=== PATIENT | female | born 1985 | race Native Hawaiian/Other Pacific Islander ===

== ENCOUNTER 2017-08-29 06:29 | Inpatient (IN) | payer OTHER ==
[2017-08-29 07:11] VITALS: BMI 26.3
[2017-08-29] MEDS ORDERED: ceFAZolin IV 2 gm in Dextrose 2 GM/50 ML BAG IVPB ONE (07:22)
[2017-08-29] MEDS ORDERED: Oxytocin 30 units/LR 500ML 30 U/500 ML BAG IV ONE (07:25)
[2017-08-29] MEDS: Lactated Ringer's 1,000 ML IV SCH ×2 (07:40→08:50)
[2017-08-29 08:27] LABS: BASO % 0.3 % (0.0-2.0); EOS # 0.1 K/uL (0.0-0.7); HEMOGLOBIN 12.2 g/dL (12.0-16.0); LYMPH # 1.6 K/uL (1.0-4.3); MEAN CELL VOLUME 93.5 fl (81.0-99.0); MEAN CORPUSCULAR HEMOGLOBIN 32.4 pg (27.0-31.0); MEAN CORPUSCULAR HGB CONC 34.6 g/dL (33.0-37.0); MEAN PLATELET VOLUME 8.4 fl (7.2-11.7); MONO # 0.5 K/uL (0.0-0.8); MONO % 5.8 % (0.0-10.0); NEUT # 5.8 K/uL (1.8-7.0); NEUT % 72.9 % (50.0-75.0); RBC 3.77 Mil/uL (3.80-5.20); RED CELL DISTRIBUTION WIDTH 13.4 % (11.5-14.5)
[2017-08-29] MEDS ORDERED: Naloxone 0.4 mg/ml Inj (Adult) IVP PRN ×2 (08:52→15:26)
[2017-08-29] MEDS ORDERED: DiphenhydrAMINE 50 mg/ml Inj IVP PRN ×2 (08:52→15:26)
[2017-08-29] MEDS ORDERED: Lactated Ringer's 1,000 ML IV SCH ×2 (09:15→15:26)
[2017-08-29] MEDS ORDERED: Morphine 1 mg/ml preservative-free Inj(Duramorph) ONE (09:41)
[2017-08-29] MEDS ORDERED: Oxycodone/Acetaminophen 5/325 mg Tab PO PRN ×3 (12:25→15:26)
--- NOTE | 2017-08-29 12:58 | OBDS ---
DELIVERY PERSONNEL Delivery Doctor: Benny Mora MD Teradata Developer: Fredy/Kalen Anesthesiologist: Dr Nieto MATERNAL INFORMATION Medications in Delivery: Pitocin Placenta Cultured: No Provider Comments: Pre-op dx: 31 G1 at 39+2 wks w/ breech presentation Post-op dx: Same Procedure: Primary low transverse section Surgeon: Morgan Belt Conveyor Drier: Dr. Sexton, the hospitalist Anesthiologist: Dr. Nieto Anesthesia: Spinal Findings: Viable female deliverd through clear fluid in breech presentation at 11 am, Apgars 9 an d 9. Wt 3450 gms, 7#10. Nl appearing uterus, tubes and ovaries. EBL: 800 mL Complications: None LABOR SUMMARY EDC: 09/03/2017 00:00 No. Babies in Womb: 0 Attempted: No Labor Anesthesia: None LABOR INFORMATION Reason for Induction: Not Applicable Oxytocin: N/A Group B Beta Strep: Negative Antibiotics # of Doses: Ancef 2 grams Antibiotics Time of Last Dose: 08/29/17 @ 0850 Steroids Given: None Reason Steroids Not Administered: Not Applicable Other Reason Not Administered: n/a MEMBRANES Membranes Rupture Method: Artificial Rupture of Membranes: 08/29/2017 11:00 Length of Rupture (hrs): 0.00 Amniotic Fluid Color: Bloody Amniotic Fluid Amount: Moderate Amniotic Fluid Odor: Normal STAGES OF LABOR Stage 3 hrs: 0 Stage 3 min: 1 CSECTION DELIVERY Primary Indication: Breech Presentation CSection Urgency: Elective CSection Incidence: Primary Labor: No Labor Elective: Elective CSection Incision: Lower Uterine Transverse BABY A INFORMATION Infant Delivery Date/Time: 08/29/2017 11:00 Method of Delivery: Born in Route : No : N/A Forceps: N/A Vacuum Extraction: N/A Shoulder Dystocia : No SHOULDER DYSTOCIA BABY A Infant Delivery Date/Time: 08/29/2017 11:00 PRESENTATION/POSITION BABY A Presentation: Breech Cephalic Presentation: N/A Breech Presentation: Complete PLACENTA INFORMATION BABY A Placenta Delivery Time : 08/29/2017 11:01 Placenta Method of Delivery: Expressed Placenta Status: Delivered SCORES BABY A Heart Rate 1 min: >100 bpm Resp Effort 1 min: Good Cry Reflex Irritability 1 min: Cough or Sneeze or Pulls Away Muscle Tone 1 min: Active Motion Color 1 min: Body [place], Extremities Blue Resuscitation Effort 1 min: Tactile Stimulation SCORE 1 MIN: 9 Heart Rate 5 min: >100 bpm Resp Effort 5 min: Good Cry Reflex Irritability 5 min: Cough or Sneeze or Pulls Away Muscle Tone 5 min: Active Motion Color 5 min: Body [place], Extremities Blue Resuscitation Effort 5 min: N/A SCORE 5 MIN: 9 INFORMATION BABY A Gestational Age at Delivery: 39.2 Gestational Status: Term Outcome : Liveborn Condition : Stable Sex: Female IDENTIFICATION/MEDS BABY A ID Band Number: [id number] ID Band Location: Left Leg; Left Arm Vitamin K Given : Not Given Erythromycin Given: Not Given WEIGHT/LENGTH BABY A Infant Birthweight (gms): 3450 Weight (lb): 7 Weight (oz): 10 CORD INFORMATION BABY A No. Cord Vessels: 3 Nuchal Cord : Around Neck x2, Loose Nuchal Cord Other: n/a True Knot: n/a Infant Cord pH Baby Arterial: n/a Cord pH Baby Venous: n/a Cord Blood Taken: Yes Banking/Donate Info: n/a Suction: Mouth; Nose ASSESSMENT BABY A Infant Complications: None Physical Findings at Delivery: Within Normal Limits Infant Respirations: Appears Normal Adaptive Physical Education Teacher/ALS Called : No Care By: Dr Mosher/Geovanna/Kalen Transferred To: Remains with Mother
--- NOTE | 2017-08-29 13:17 | HP ---
HISTORY OF PRESENT ILLNESS: This is a 31-year-old G1 at 39 weeks and 2 days with an EDC of 09/03/2017 based on 9 week ultrasound who presents to labor and delivery for a primary section for breech presentation at term. The patient received her with [facility] with Dr. Angie Mora. On 04/16/2017, [facility] ultrasound revealed mild bilateral pyelectasis and an echogenic focus in the heart. The patient declined genetic counseling and [facility] consult. On 05/15/2017, echo was normal. On 06/12/2017, her one-hour Glucola was elevated at 168. The patient had a 3-hour glucose tolerance test on 06/25/2017; fasting was 84, one- hour was 192 elevated, 2-hour was 132 and 3-hour was 65, not consistent with gestational diabetes. The patient received flu shot on 02/26/2017 and Tdap was given on 07/23/2017. On 08/06/2017, her GBS was negative. PAST MEDICAL HISTORY: None. PAST SURGICAL HISTORY: None. MEDICATIONS: The patient is on vitamins and Claritin. FAMILY HISTORY: Noncontributory. SOCIAL HISTORY: The patient denies tobacco, alcohol or illicit drug use. ALLERGIES: NO KNOWN DRUG ALLERGIES. GYNECOLOGIC HISTORY: The patient reports that she gets periods every 35 to 38 days. Th patient denies any history of any abnormal Paps and reports that she had Chlamydia in 2010. 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 LABORATORY DATA: On 02/04/2017, Hepatitis B surface antigen negative, Rubella immune are positive, VZV IgG positive. RPR nonreactive. Hemoglobin electrophoresis: No hemoglobin variant detected. HIV negative. Cystic fibrosis negative. Fragile X negative. Spinal muscular atrophy, SMA carrier screen negative. Urine culture no growth. Blood type O positive. Antibody screen negative. On 02/19/2017, her Panorama was low risk female fetus. On 02/19/2017, her first semester screen was within range. On 06/12/2017, one-hour Glucola was 168. On 06/25/2017, 3-hr GTT: fasting sugar was 84, one-hour Glucola was 192, elevated; two-hour was 132 and three-hour was 65. On 06/12/2017, RPR was nonreactive and HIV was negative. PHYSICAL EXAMINATION: VITAL SIGNS: Afebrile. Vital signs are stable. GENERAL: The patient appears comfortable, lying in bed. HEART: Regular rate and rhythm. CHEST AND LUNGS: Clear to auscultation bilaterally. EXTREMITIES: Nontender. No edema. PELVIC: Vaginal exam deferred. External monitoring: the baseline is in the 130s with moderate variability and positive accelerations. Tocodynamometer: No contractions noted. ASSESSMENT AND PLAN: This is a 31-year-old G1 at 39 weeks and 2 days scheduled for a primary section for breech presentation at term. Consent for procedure and possible transfusion obtained. All questions answered. Jojo Mora MD MTDD
[2017-08-29] MEDS ORDERED: Simethicone 80 mg Chewtab PO SCH (16:00)
[2017-08-29] MEDS: Simethicone 80 mg Chewtab PO SCH ×2 (17:49→23:53)
--- NOTE | 2017-08-29 22:32 | OP ---
PROCEDURE DATE: 08/29/2017 PREOPERATIVE DIAGNOSIS: This is a 31-year-old G1 at 39 weeks and 2 days with breech presentation. POSTOPERATIVE DIAGNOSIS: This is a 31-year-old G1 at 39 weeks and 2 days with breech presentation. PROCEDURE: Primary low-transverse section. SURGEON: Jjoo Mora MD BEHAVIORAL HEALTH CONSULTANT: Mirna Sexton MD, the hospitalist. Dr. Sexton was the surgical garment fitter and participated in the surgery for the entire duration of the case. She helped create exposure. She also helped maintain hemostasis, operated throughout the case on the side of the patient that was across from her, and assisted in the delivery of the infant by guiding the head out to the incision as well as by applying fundal pressure during the delivery. This procedure could not have been completed without her assistance. FINDINGS: A viable female infant delivered through clear fluid in breech presentation, loose double nuchal cord present. Apgars were 9 and 9 at one and five minutes respectively. The weight was 3450 g or 7 pounds 10 ounces. Normal-appearing uterus, tubes, and ovaries. ESTIMATED BLOOD LOSS: About 800 mL. COMPLICATIONS: None. DESCRIPTION OF PROCEDURE: The patient was taken to the operating room where spinal anesthesia was placed. She was then prepped and draped in the normal sterile fashion in the dorsal supine position with a leftward tilt. A time-out was done. The spinal was tested and found to be adequate. A Pfannenstiel skin incision was then made with the scalpel and carried through to the underlying layer of fascia with the Bovie. The fascia was incised in the midline. The incision was extended laterally with the Bovie over a Ruchi. The inferior aspect of the fascial incision was then grasped with the Cristofer clamps, elevated and the underlying rectus muscles were dissected off bluntly with the Bovie. Attention was then turned to the superior aspect of this incision, which in a similar fashion was grasped, tented up with the Cristofer clamps, and the rectus muscles were dissected off bluntly and with the Bovie. The rectus muscles were then in the midline; and the peritoneum was identified, tented up and entered sharply with the Metzenbaum scissors. The peritoneal incision was then extended superiorly and inferiorly with good visualization of the bladder. The bladder blade was then inserted and the vesicouterine peritoneum was grasped with the pickups and entered sharply with Metzenbaum scissors. The incision was then extended laterally and the bladder flap was created digitally. The bladder blade was then reinserted and the lower uterine segment was incised in transverse fashion with the scalpel. The uterine incision was then extended digitally in a cephalocaudad direction and laterally. The bladder blade was removed. The infant's feet were delivered through the incision followed by the legs, then the torso followed by the arms, and finally the head. The Rawls scissors were used to cut a centimeter into the right rectus muscle to make more room for the delivery of the head. The nose and mouth were suctioned with the bulb suction. The cord was clamped and cut and the was handed off to the awaiting gis professor. Cord blood was collected. The placenta was then delivered as the uterus was massaged. The uterus was then exteriorized and cleared of all clots and debris with a dry sponge curettage. The uterine incision was then repaired with 0 Vicryl in a running locked fashion. A second layer of 0 Monocryl was used in an imbricating fashion to reinforce the incision and for hemostasis. A few single interrupted stitches using 2-0 Monocryl were placed for hemostasis. The abdomen was then well irrigated. The uterus was returned to the abdomen. The gutters were cleared of all clots. The uterine incision was reexamined and two interrupted stitches of 2-0 Monocryl were placed for hemostasis. The peritoneum was then closed with 2-0 chromic. The rectus muscle was then re-approximated with a few interrupted stitches of 0- chromic. The fascia was re-approximated with 0 Vicryl in a running fashion. The subcutaneous fat was well irrigated. The Bovie was applied to small bleeders. The space of the subcutaneous fat was closed with interrupted stitches of 2-0 plain gut. The skin was then closed in a subcuticular fashion with 4-0 Monocryl. The patient tolerated the procedure well. Sponge, lap, and needle counts were correct. The patient received 2 gm of Ancef prior to the procedure and was also given 1 g of Ancef during the procedure given that the original 2 gm had been given a little longer than an hour prior to the procedure. The patient was taken to the recovery room in stable condition. Jojo Mora MD [facility] # [id number] MTDD
[2017-08-30] MEDS: Simethicone 80 mg Chewtab PO SCH ×4 (05:13→21:34)
[2017-08-30 07:32] LABS: HEMOGLOBIN 11.3 g/dL (12.0-16.0); MEAN CELL VOLUME 92.8 fl (81.0-99.0); MEAN CORPUSCULAR HEMOGLOBIN 32.1 pg (27.0-31.0); MEAN CORPUSCULAR HGB CONC 34.6 g/dL (33.0-37.0); RBC 3.5 Mil/uL (3.80-5.20); RED CELL DISTRIBUTION WIDTH 13.5 % (11.5-14.5); WHITE BLOOD COUNT 12.4 K/uL (4.8-10.8)
[2017-08-30] MEDS: Oxycodone/Acetaminophen 5/325 mg Tab PO PRN ×3 (08:54→21:33)
[2017-08-31] MEDS: Oxycodone/Acetaminophen 5/325 mg Tab PO PRN ×4 (01:28→21:02)
[2017-08-31] MEDS: Simethicone 80 mg Chewtab PO SCH ×4 (05:24→21:01)
--- NOTE | 2017-08-31 08:42 | OBPPN ---
Datetime: 08/30/2017 08:36 PP Pain Prov: Within normal limits PP Nausea Prov: Denies PP Flatus Prov: Yes PP Breasts Prov: Normal PP Heart Prov: Normal PP Lungs Prov: Normal PP Abdomen/Uterus Prov: Normal PP Lochia Prov: Normal PP Vulva/Perineum Prov: Normal PP CVA Tenderness Prov: Normal PP Extremities Prov: Normal PP Comments Phys Exam Prov: Abdomen soft, nontender, nondistended Incision clean, dry, intact Uterus firm, below umbilicus No deep calf Tenderness bilaterally PP Impression Prov: Normal progression PP Plan Prov: Continue present management PP Progress Note Prov: Postop day #1 status post , patient recovering well Postop CBC Regular diet Patient out of bed, ambulate Caruso out, we will check Pain control IP PP Procedures: None Vital Signs Provider PP: Reviewed; Within Normal Limits
--- NOTE | 2017-08-31 11:36 | OBPPN ---
Datetime: 08/31/2017 11:33 PP Pain Prov: Within normal limits PP Nausea Prov: Denies PP Flatus Prov: Yes PP BM Prov: No PP Breasts Prov: Normal PP Heart Prov: Normal PP Lungs Prov: Normal PP Abdomen/Uterus Prov: Normal PP Lochia Prov: Normal PP Vulva/Perineum Prov: Normal PP CVA Tenderness Prov: Normal PP Extremities Prov: Normal PP C/S Incision Prov: Normal PP Progress Prov: Normal PP Impression Prov: Normal progression PP Plan Prov: Continue present management PP Progress Note Prov: Rosio radha christianson H/H A; S/P C/S breech PLAN: cont post op care anticipate discharge tmrw Vital Signs Provider PP: Reviewed; Within Normal Limits
[2017-09-01] MEDS: Simethicone 80 mg Chewtab PO SCH ×3 (04:26→11:49)
--- NOTE | 2017-09-01 07:58 | OBPPN ---
Datetime: 09/01/2017 07:54 PP Pain Prov: Within normal limits PP Nausea Prov: Denies PP Flatus Prov: Yes PP BM Prov: Yes PP Abdomen/Uterus Prov: Normal PP Lochia Prov: Normal PP Extremities Prov: Normal PP Comments Phys Exam Prov: Incision: intact w/ steri strips PP Impression Prov: Normal progression PP Plan Prov: Discharge PP Progress Note Prov: POD 3 s/p primary c/s for breech presentation, doing well, breast and bottle feeding Rx's motrin and percocet given Discharge home today Vital Signs Provider PP: Reviewed; Within Normal Limits
--- NOTE | 2017-09-01 08:01 | OBDCSUM ---
Datetime: 09/01/2017 07:58 Discharged to, Provider: Home Follow up at, Provider: Dr. Mora Disch Instr Activity: Normal activity Disch Instr Diet: Regular Discharge Instructions, Provider: Routine instructions given Discharge Diagnosis, Provider: Term Delivered Discharge Time: 09/01/2017 07:58 Follow up in weeks, Provider: 1 week Contraception discussed, Prov: No Disch Activity Restrictions: No exercising; No lifting; No driving; No sexual activity; Nothing in v agina - Somis, tampons, douche
[2017-09-01 19:04] VITALS: BP 131/64; PULSE 99; RESP 20; TEMP 97.1; O2SAT 100
== END 2017-09-01 14:20 | disposition home or self-care (01) | DRG 766 ==
LOC: H.L&D 07:24 → H.OB/GYN 17:28
PROVIDERS: ADMIT Obstetrics & Gynecology; ATTEND Obstetrics & Gynecology
PROC: 10D00Z1 Extraction of Products of Conception, Low, Open Approach (ICD-10-PCS; principal; 2017-08-29)
PROC: 4A1HXCZ Monitoring of Products of Conception, Cardiac Rate, External Approach (ICD-10-PCS; 2017-08-29)
DX: O32.1XX0 Maternal care for breech presentation, not applicable or unspecified (principal); O69.81X0 Labor and delivery complicated by cord around neck, without compression, not applicable or unspecified; Z37.0 Single live birth; Z3A.39 39 weeks gestation of pregnancy